=== PATIENT | female | born 1985 | race Caucasian/White ===

== ENCOUNTER → 2017-08-07 12:07 | Outpatient (CLI) | payer OTHER, MEDICAID, SELFPAY ==
[2017-08-07 16:08] LABS: hCG Titer Quant., Serum < 1 mIU/mL (<9 non-preg)
[2017-08-11 10:18] LABS: HPV Reflexed? NOT INDICATED
== END ==
PROVIDERS: Visit Provider Obstetrics & Gynecology
DX: Z12.4 Encounter for screening for malignant neoplasm of cervix (principal); N92.6 Irregular menstruation, unspecified
CPT/HCPCS: 36415; 84702; 88175; G0145

== ENCOUNTER → 2018-07-15 15:17 | Outpatient (CLI) | payer OTHER, MEDICAID, SELFPAY ==
[2016-01-27 07:20] VITALS: BMI 28.9
[2018-07-15 17:24] LABS: Chlamydia Trachomatis by PCR Negative (Negative); Neisserai gonorrhoeae by PCR Negative (Negative); Probe Check PASS; Sample Adequacy Control PASS; Specimen Processing Control PASS
[2018-07-18 08:53] LABS: HPV Reflexed? NOT INDICATED
== END ==
PROVIDERS: Visit Provider Obstetrics & Gynecology
DX: Z12.4 Encounter for screening for malignant neoplasm of cervix (principal); Z11.3 Encounter for screening for infections with a predominantly sexual mode of transmission
CPT/HCPCS: 87491; 87591; 88175; G0145

== ENCOUNTER → 2018-12-16 10:18 | Outpatient (CLI) | payer OTHER, MEDICAID, SELFPAY ==
[2016-01-27 07:20] VITALS: BMI 28.9
== END ==
PROVIDERS: Visit Provider Obstetrics & Gynecology
DX: Z36.9 Encounter for antenatal screening, unspecified (principal)
CPT/HCPCS: 36415; 83036

== ENCOUNTER → 2019-01-29 09:56 | Outpatient (CLI) | payer OTHER, MEDICAID, SELFPAY ==
[2016-01-27 07:20] VITALS: BMI 28.9
== END ==
PROVIDERS: Visit Provider Obstetrics & Gynecology
DX: Z36.85 Encounter for antenatal screening for Streptococcus B (principal)
CPT/HCPCS: 87081

== ENCOUNTER 2019-02-20 01:08 | Inpatient (IN) | payer OTHER, MEDICAID, SELFPAY ==
[2016-01-27 07:20] VITALS: BMI 28.9
[2019-02-20] MEDS: Oxytocin 10 UNITS/ML Vial IM (01:16)
--- NOTE | 2019-02-20 01:24 | PCM.HP.BLA ---
History and Physical Date of Admission: 02/20/19 ACOG ANTEPARTUM RECORD - HISTORY AND PHYSICAL (02/20/2019) Name: SUGEY ORTIZ History of This : This is a 33-year-old 8 para 5 AB 2 who presents in active labor. Upon arrival to the hospital patient was noted to have ruptured membranes and she was immediately brought from the emergency room to the labor and delivery suite. care remarkable for a prior precipitous delivery. OB Physician: [facility] '[facility] Phys[facility]: [facility] ...................................................................... : 1985 Age: 33 Address: [address] [place] [address] Phone: (h) [phone] Insurance Carrier: JOSÉ MIGUEL [id number] Emergency Contact: KIRK ORTIZ [phone] ...................................................................... Final MARILU: 02/26/19 By Ultrasound: PARITY: (G-Total Pregnancies P-Fullterm,Premature,Induced AB,Spont AB, Ectopics, Multiple,Living) MARILU CONFIRMATION: By LMP: 05/13/18 Initial Exam: 02/26/19 By First Ultrasound Exam: 02/26/19 Final MARILU: 02/26/19 BLOOD TYPE: TNP AFP: 1 HR P GBS: Original Ordering Provider: Nancy Benekos Comments: RECTAL/VAGINAL MAGALY Culture Group B Beta Streptococcus is not isolated. Rublla titer (>10 immune)--Aug 27 2011: 19 Hepatatis B javier AG-- Jul 08 2015: Negative Jul 31 2019: Negative CULTURES:-- OB PROBLEM LIST: Nurse delivered first baby due to rapid second stage. Baby #2 had Craniosynostosis. DOES NOT SWALLOW PILLS Hx of vulvar varicosities Lost her Glucola at lab Hgb A1C wnl. MSAFP and CF testing declined Rh Negative Rhogam at 28 wks. RUBELLA NONIMMUNE MMR Seborrheic Dermatitis Occas. use Cortisone Cream TSH suppressed. Free T3 and frree T4 -- WNL ALLERGIES: NKDA MEDICATIONS: azithromycin 200 mg/5 mL oral suspension 500 mg first dose, then 250 mg po daily until gone ferrous sulfate 325 mg (65 mg iron) tablet 1 po daily Flonase Allergy Relief 50 mcg/actuation nasal spray,suspension daily 28 mg iron-800 mcg tablet One pill by mouth once a day Proventil HFA 90 mcg/actuation aerosol inhaler 2 puffs q 4 hrs as needed Qvar 40 mcg/actuation Metered Aerosol oral inhaler 2 puffs BID Singulair 10 mg tablet One tablet by mouth daily Vitamin D3 1,000 unit capsule daily SOCIAL HISTORY: Smoking - Never Alcohol Use - None Diet - moderate, balanced diet Lifestyle - low stress lifestyle and Exercise - minimal 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[employer]) Illicit Drug Use - denies use of street drugs Sexual Activity - Residence - owns a home and lives with Place of - [place] Hours Worked - 30 Spouse-Sig Other Name - Art Ortiz Spouse-Sig Other Occupation - [employer] Spouse-Sig Other Phone No - [phone] Children Name(s) - Marco Antonio ([place]), Atif ([place]), Tiara (EL[place]), Jeancarlos (Jainism), Sabina (ELB) PRIOR DELIVERY HISTORY DEL DATE GEST LAB WT LB WT OZ TYPE ANES LABOR TX 07 Aug 12 39 16 6 15 Vag None No 08 Feb 10 39 3 6 9 Vag None No 11 Jan 17 38 2 6 6 Vagin None No 16 Mar 15 7 0 0 0 Sab Epidural No 23 Jan 19 39 -1 7 15 Vag None No 24 Nov 11 7 0 0 0 Vag None No 25 Feb 12 37 12 6 7 Vag None No ANTEPARTUM FLOW CHART VISIT GE RTC FU F F WA U U DATE WK MD WKS HT PN HR M SS BP ED WT WA GL D EF ST __ ____ ___ __ __ ___ __ __ __ ___ __ __ __ ___ __ 15 Feb ELB 1 34 V + + 122/84 0 158 tr - ft 03 Feb 37 ELB 1 34 V + + 124/66 sl 157 - - 26 Jan 36 ELB 1 34 V + + 126/72 0 157 - - 1 TH -3 05 Jan 33 ELB 2 33 - + + 124/72 0 155 tr - Jan 01 ELB 2 28 - + + 124/68 sl 155 tr - 02 Dec 31 ELB 2 28 - + + 100/72 0 156 - + 02 Nov 25 ELB 4 24 - + + 122/62 0 155 - - 05 Oct 22 ELB 4 - - U+ + 102/70 0 152 - - Aug 16 ELB 4 - - + O 130/74 0 150 tr - 28 Jul 14 JMW 4 U+ 116/68 0 149 tr - ANTEPARTUM NOTE(S): Feb 17 2019: see note Feb 05 2019: Jan 29 2019: LARC and GBS today Jan 08 2019: Dec 16 2019: HgbA1C today Dec 05 2018: feeling well. Glucola and rhogam given. Nov 04 2018: glucola given Oct 08 2018: feeling well. Aug 26 2018: doing well Jul 31 2018: Sono Today,Periodic nausea/fatigue,NOB Today COMPREHENSIVE ANTEPARTUM NOTE(S): Feb 17 2019: Sugey is here for visit. She is concerned about prior rapid delivery. Wants to discuss options. Not really sure if she wants induction. Reviewed FM, SROM, and labor. LMT Feb 17 2019: SWAPNA 22.3cm EFW 2884g gms EFW 36% pct EFW 6lb 6oz lbs AGA on sono last visit. Hoping no labor for now. Wants cervix check. Considering induction but not until at least 40 wks. hoping to be off 4 wk for her maternity leave. Then to [facility] break the week of diana. EB Feb 05 2019: Wearing bilateral compression stockings. Good FM. She is asking about GBS results-- advised was negative. She did get pre-registered. Getting uncomfortable with advancing ; she has been mukund, doing laundry and a little more tired today from added work at home. [facility] Feb 05 2019: Sono for SWAPNA and EGA. Size less than dates. Hx of smalller babies. RTO in 1 wk for PNV after sono today. EB Feb 02 2019: GBS negative. EB Feb 02 2019: H taken to OB. tkg Jan 29 2019: Continues compression stockings for lower legs, particularly R. Minimal edema. Good FM. GBS, LARC done today. Sent to [facility] to pre-register after appt this morning. Voicing no concerns today. [facility] Jan 08 2019: Reporting legs getting tired and achy by the end of the day, particularly R anterior lower leg area where varicosities are more prominent. She does wear compression stockings sometimes, not every day. Also reporting intermittent lower abd pressure more so when she is up and active. No ctxs's. Good FM. [facility] Jan 08 2019: Feeling well overall, contnuing to struggle with heartburn, Tums work sporadically, she is unable to swallow pills; ; reports active FM; denies nausea, UCs, VB, LOF; frequent interrupted sleep; superficial varcosities L lateral ankle, she does wear support hose most days; discussed trying Mylanta, what to watch for and report if worsening varicosities, warning signs, s/s PTL; RTO 3 week(s)for PNV GBS swab at next visit Jan 08 2019: Suggested Prilosec OTC granules for suspension for inc n/v at this point in reviewed other measures to help with nausea, heartburn. RTO in 3 wk for PNV. GBS next visit. EB Dec 16 2019: Not taking iron Does not swallow pills. Rec iron rich foods. HgbA1C today to check diabetes in Glucola lost in transit. RTO in 2-3 wk for PNV. EB Nov 04 2019: Sugey reporting FM. Glucola bottle and instructions given to be done next visit. Expressing concern with feeling hungry, but just ate: does not feel this every day; has noticed this feeling with meds sometimes. On Qvar, Flonase, Singulair for Asthma. Otherwise feeling well. kbm Oct 08 2019: Inc acne and skin irritation over her face, cheeks. Wondering if WNL. Asking if this is Fifth's disease. Children potentially exposed to this. Offered Parvovirus B 19 IgM, IgG and reviewed usual sx that adults would have. Has not had labs done. Lab order already sent in for her via triage to have this testing done. Daughter did NOT have the slapped cheek appearance but they think just had a sun reaction, but not on face.... Advised that usual adult sx is not a rash/ slapped cheek appearance (which she doesn't have) but is normally joint aches and flu like sx. Asking what to try. EXAM: likely rosacea. Advised: try calming lotions and creams/ products for rosacea. Offered / declines RX for topical abx for now. Farshad WNL. Girl. AGA Doing well. EB Aug 26 2019: Reviewed l labs. TSH low and T4, T3 still pending. Cold sx and now with sinus infection x more than 7 d. Yellow thick dischg. Asthma and having to use more meds. Will send in liquid abx as she does not swallow pills. EB Aug 04 2018: A NEG. RUBELLA NONIMMUNE Hgb 12.9 g/dl. EB Jul 31 2018: Sugey is here for her NOB visit at 10 w 0 d, she is a A2 with an MARILU of 02/26/2019. She and her have 5 children at home, all delivered vaginally. Past history updated. Her last labor was induced as she usually has rapid labors and she was GBS+. Delivery at [facility] is planned without an epidural and she will breastfeed. She has a hx of Asthma, and uses several medications for same, including a rescue inhaler. Sugey is a non-smoker, and she denies use of drugs or ETOH. She takes an OTC gummy vitamin, and tolerates this well. States that she cannot swallow pills. Genetic Screening form competed. MSAFP and CF testing declined, consent signed as such. Office practice patterns reviewed. labs drawn prior to NOB visit. Emergencies/danger signs to report, round ligament pain, reporting s/s of a UTI, and common OTC medications approved/not approved for use during discussed. Sugey states that she notes some nausea, no emesis. Reviewed measures that may help minimize nausea, including small frequent meals with protein included throughout the day, and adequate water hydration of at least one gallon per 24 hours. She walks for exercise several times a week. Kegel exercises reviewed. Lifting restrictions discussed. Dietary and water needs reinforced, including caloric needs, recommended weight gain, limiting empty calories, and limiting caffeine to one cup a day. Printed guide for food safety provided with review. Sugey states that she has no questions following NOB visit, and has no questions following same. AW New Jul 15 2018: Sugey is here for missed menses. Relates very fatigued, feels more so than other times she thinks. This is her her 8 th . History of 5 full term births and 2 SAB's prior. Asking if anything she can do for the fatigue? Advised take PNV more regularly and rest as able. Really not much to do for this. Has a lot of responsibilities at home with job and children so this is likely pretty normal. Takes PNV intermittently as feels this makes her more nausea. Not interested in things to try unless they are natural. Advised she could try B6 bid, seabands. Will ck panel at her next visit to make sure she is not anemic or has a thyroid disorder. Feels her inhaler increases her nausea but needs to take this. Agree. Educational materials are provided are reviewed. Encouarged increased fluids as tolerated, 300 extra calories per day, 30 minutes of exercise 5x/wk. Pap and cultures will be done today. LMT Jul 15 2018: Cervical cultures NEG EB REVIEW OF SYSTEMS: GENERAL - Denies fever, or chills SKIN - Denies rash, new skin lesions, or change in moles EYES - Denies blurred vision, or change in visual acuity EARS - Denies ear pain, or difficulty hearing NOSE - Denies nasal congestion, discharge, or bleeding MOUTH - Denies sore throat, or difficulty swallowing NECK - Denies pain or swelling RESPIRATORY - Denies shortness of breath, cough, wheezing CARDIOVASCULAR - Denies palpitations, chest pain, orthopnea, PND, peripheral edema, syncope or claudication GASTROINTESTINAL - Denies nausea, vomiting, diarrhea, constipation, Denies abdominal pain, melena and or bright red blood GENITOURINARY - Denies dysuria, frequency of urination, urgency, or hesitancy MUSCULOSKELETAL - Denies joint or muscle pain, or back pain NEUROLOGICAL - Denies localized numbness, weakness, or tingling PSYCHIATRIC - Denies depression, anxiety, substance abuse or suicide attempts ENDOCRINE - Denies heat or cold intolerance, weight loss or gain, increasing thirst HEMATO-IMMUNOLOGIC - Denies easy bruising, bleeding, oral ulcerations or recurrent infections GENETICS SCREENING: Age 35+ years: No Thalassemia: No Neural Tube Defect: No Down Syndrome: No JEWELL-SACHS: No Sickle Cell Disease: No Hemophilia: No Musc. Dystrophy: No Cystic Fibrosis: No-declines screening Jeremias Chorea: No Mental Retardation: No Fragile X: No Other genetic: son-Craniosynotosis Other defects: son-Craniosynotosis SABs/still births: No Drugs since LMP: Yes, Qvar, Sigulair INFECTION HISTORY: High risk AIDS: No High risk Hepatitis: No Exposed to TB: No Exposed to Herpes: No Rash/viral illness since LMP: No History of STD: No MENSTRUAL HISTORY: *Menses Amount/Duration: 5-6 DAYSMenses Regularity: 4-7 weeksFrequency: variableMenarche (Age Onset): 13* PAST SUMMARY: PARITY: 1. Total Pregnancies............ 8 2. Full Term Pregnancies........ 5 3. Premature.................... 0 4. Abortions - Induced.......... 0 5. Abortions - Spontaneous...... 2 6. Ectopics..................... 0 7. Multiple Births.............. 0 8. Living Children.............. 5 PAST #1: Date of :.................. 08/10/08 Gestation Weeks:................ 39 Length of labor(hours):......... 16 Sex:............................ M Weight-lbs:............... 6 Weight-oz:................ 15 Type of Delivery:............... Vag Type of Anesthesia:............. None Place of Delivery:.............. [place] Treatment of Labor?:.... No Comment: NURSE DELIVERED BABY PAST #2: Date of :.................. 02/10/10 Gestation Weeks:................ 39 Length of labor(hours):......... 3 Sex:............................ M Weight-lbs:............... 6 Weight-oz:................ 9 Type of Delivery:............... Vag Type of Anesthesia:............. None Place of Delivery:.............. [place] Treatment of Labor?:.... No Comment: PAST #3: Date of :.................. 03/29/11 Gestation Weeks:................ 7 Length of labor(hours):......... 0 Sex:............................ UNKNOWN Weight-lbs:............... 0 Weight-oz:................ 0 Type of Delivery:............... Vag Type of Anesthesia:............. None Place of Delivery:.............. HOME Treatment of Labor?:.... No Comment: NO D & C NEEDED PAST #4: Date of :.................. 02/28/12 Gestation Weeks:................ 37 Length of labor(hours):......... 12 Sex:............................ F Weight-lbs:............... 6 Weight-oz:................ 7 Type of Delivery:............... Vag Type of Anesthesia:............. None Place of Delivery:.............. [place] Treatment of Labor?:.... No Comment: PAST #5: Date of :.................. 01/14/14 Gestation Weeks:................ 38 Length of labor(hours):......... 2 Sex:............................ M Weight-lbs:............... 6 Weight-oz:................ 6 Type of Delivery:............... Vaginal Type of Anesthesia:............. None Place of Delivery:.............. [place] Treatment of Labor?:.... No Comment: GBS POSITIVE PAST #6: Date of :.................. 03/21/15 Gestation Weeks:................ 7 Length of labor(hours):......... 0 Sex:............................ Weight-lbs:............... 0 Weight-oz:................ 0 Type of Delivery:............... Sab Type of Anesthesia:............. Epidural Place of Delivery:.............. [place] Treatment of Labor?:.... No Comment: PAST #7: Date of :.................. 01/27/16 Gestation Weeks:................ 39 Length of labor(hours):......... -1 Sex:............................ F Weight-lbs:............... 7 Weight-oz:................ 15 Type of Delivery:............... Vag Type of Anesthesia:............. None Place of Delivery:.............. [place] Treatment of Labor?:.... No Comment: GBS+, IOL PHYSICAL EXAMINATION General Appearence: 33 yo female in no acute distress Vital Signs: AF, VSS Heart: RRR without rubs or gallops Lungs: CTA x 2 Breasts: deferred Abdomen: gravid Pelvis: Cervix: Complete with gross rupture of membranes Presentation: cephalic Station: +2 Fetus: Size: AGA Movement: present Heart: present Labs for : SUGEY ORTIZ since 06/01/2018 ORDER DATEIN DESCRIPTION VALUE UNITS RANGE A+ COMMENT CULTURE, GROUP B STREPTOCOCCUS 01/29/19 NOTE Original Ordering Provider: Nancy Regan Comments: RECTAL/VAGINAL MAGALY Culture Group B Beta Streptococcus is not isolated. Reviewed by NANCY HEMOGLOBIN A1C 12/16/18 NOTE Original Ordering Provider: Nancy Regan HGB A1C 5.0 % 4.2-6.3 Reviewed by NANCY SPECIMEN STATUS REPORT 12/05/18 SPECIMEN STATUS REPORT NOSR No specimen received. TEST: [id number] Gest. Diabetes 1-Hr Screen SPECIMEN REQUIRED LEDEZMA TOP SPECIMEN RECEIVED LITH HEP PLASMA CONTACTED RUPA LANDRUM RN AT YOUR FACILITY ON 12/08/18 GEST. DIABETES 1-HR SCREEN 12/05/18 GESTATIONAL DIABETES SCREEN NOSR mg/dL No specimen received. SPECIMEN REQUIRED LEDEZMA TOP SPECIMEN RECEIVED LITH HEP PLASMA CONTACTED RUPA LANDRUM RN AT YOUR FACILITY ON 12/08/18 According to ADA, a glucose threshold of >139 mg/dL after 50-gram load identifies approximately 80% of women with gestational diabetes mellitus, while the sensitivity is further increased to approximately 90% by a threshold of >129 mg/dL. CBC WITH DIFFERENTIAL/PLATELET 12/05/18 WBC 9.8 x10E3/uL 3.4-10.8 RBC 3.50 x10E6/uL 3.77-5.28 L HEMOGLOBIN 10.9 g/dL 11.1-15.9 L HEMATOCRIT 32.5 % 34.0-46.6 L MCV 93 fL 79-97 MCH 31.1 pg 26.6-33.0 MCHC 33.5 g/dL 31.5-35.7 RDW 12.5 % 12.3-15.4 PLATELETS 291 x10E3/uL 150-450 NEUTROPHILS 72 % Not Estab. LYMPHS 19 % Not Estab. MONOCYTES 7 % Not Estab. EOS 2 % Not Estab. BASOS 0 % Not Estab. IMMATURE CELLS NEUTROPHILS (ABSOLUTE) 7.1 x10E3/uL 1.4-7.0 H LYMPHS (ABSOLUTE) 1.9 x10E3/uL 0.7-3.1 MONOCYTES(ABSOLUTE) 0.7 x10E3/uL 0.1-0.9 EOS (ABSOLUTE) 0.2 x10E3/uL 0.0-0.4 BASO (ABSOLUTE) 0.0 x10E3/uL 0.0-0.2 IMMATURE GRANULOCYTES 0 % Not Estab. IMMATURE GRANS (ABS) 0.0 x10E3/uL 0.0-0.1 NRBC HEMATOLOGY COMMENTS: ANTIBODY SCREEN 12/05/18 ANTIBODY SCREEN Negative Negative Reviewed by NANCY TAYLOR URINE TUBE (LEDEZMA) 07/31/18 NTI URINE TUBE (LEDEZMA) Test not indicated . A urine culture transport was received with no test indicated. If testing is required on this specimen, please contact the [facility] Client Inquiry/Technical Services Department to obtain a Request for Written Authorization Form. HCV ANTIBODY 07/31/18 HEP C VIRUS AB <0.1 s/co ratio 0.0-0.9 Negative: < 0.8 Indeterminate: 0.8 - 0.9 Positive: > 0.9 . The CDC recommends that a positive HCV antibody result be followed up with a HCV Nucleic Acid Amplification test ([id number]). CBC/D/PLT+RPR+UA+RH+ABO+RUB... 07/31/18 TSH 0.423 uIU/mL 0.450-4.500 L HBSAG SCREEN Negative Negative RPR Non Reactive Non Reactive RUBELLA ANTIBODIES, IGG 0.96 index Immune >0.99 L A second sample should be collected and tested no less than 2-4 weeks. Non-immune <0.90 Equivocal 0.90 - 0.99 Immune >0.99 ABO GROUPING A RH FACTOR Negative Please note: Prior records for this patient's ABO / Rh type are not available for additional verification. ANTIBODY SCREEN Negative Negative HIV SCREEN 4TH GENERATION WRFX Non Reactive Non Reactive WBC 13.9 x10E3/uL 3.4-10.8 H RBC 4.17 x10E6/uL 3.77-5.28 HEMOGLOBIN 12.9 g/dL 11.1-15.9 HEMATOCRIT 38.0 % 34.0-46.6 MCV 91 fL 79-97 MCH 30.9 pg 26.6-33.0 MCHC 33.9 g/dL 31.5-35.7 RDW 13.0 % 12.3-15.4 PLATELETS 353 x10E3/uL 150-379 NEUTROPHILS 73 % Not Estab. LYMPHS 19 % Not Estab. MONOCYTES 7 % Not Estab. EOS 1 % Not Estab. BASOS 0 % Not Estab. IMMATURE CELLS NEUTROPHILS (ABSOLUTE) 10.2 x10E3/uL 1.4-7.0 H LYMPHS (ABSOLUTE) 2.6 x10E3/uL 0.7-3.1 MONOCYTES(ABSOLUTE) 0.9 x10E3/uL 0.1-0.9 EOS (ABSOLUTE) 0.1 x10E3/uL 0.0-0.4 BASO (ABSOLUTE) 0.0 x10E3/uL 0.0-0.2 IMMATURE GRANULOCYTES 0 % Not Estab. IMMATURE GRANS (ABS) 0.0 x10E3/uL 0.0-0.1 NRBC HEMATOLOGY COMMENTS: SPECIFIC GRAVITY >=1.030 1.005-1.030 A PH 6.5 5.0-7.5 URINE-COLOR Yellow Yellow APPEARANCE Clear Clear WBC ESTERASE Negative Negative PROTEIN Trace Negative/Trace GLUCOSE Negative Negative KETONES Trace Negative A OCCULT BLOOD Negative Negative BILIRUBIN Negative Negative UROBILINOGEN,SEMI-QN 0.2 mg/dL 0.2-1.0 NITRITE, URINE Negative Negative MICROSCOPIC EXAMINATION Microscopic not indicated and not performed. [id number] 7+ALC-UNBUND 07/31/18 AMPHETAMINES, URINE Negative ng/mL Mbfeyj=0970 Amphetamine test includes Amphetamine and Methamphetamine. BARBITURATE Negative ng/mL Pyhbfy=753 BENZODIAZEPINES Negative ng/mL Eiqlpr=656 CANNABINOID Negative ng/mL Cutoff=50 COCAINE (METAB.) Negative ng/mL Amdvnq=810 OPIATES See Final Results ng/mL Moyclw=853 Opiate test includes Codeine and Morphine only. OPIATES Negative Avudej=363 Opiate test includes Codeine and Morphine only. PHENCYCLIDINE Negative ng/mL Cutoff=25 ETHANOL, URINE Negative % Cutoff=0.020 Reviewed by NANCY PAP I-G W/RFX HRHPV 07/15/18 NOTE Original Ordering Provider: Nancy Regan DIAGN . NEGATIVE FOR INTRAEPITHELIAL LESION OR MALIGNANCY. ADEQ . Satisfactory for evaluation. Endocervical and/or squamous metaplastic cells (endocervical component) are present. PERFORM . Rayna Wiggins, [place] (ASCP) TEST METHOD . This liquid based ThinPrep(R) pap test was screened with the use of an image guided system. COMM . . PAPSMR . The Pap smear is a screening test designed to aid in the detection of premalignant and malignant conditions of the uterine cervix. It is not a diagnostic procedure and should not be used as the sole means of detecting cervical cancer. Both false-positive and false-negative reports do occur. HPV RFLX . The HPV DNA reflex criteria were not met with this specimen result therefore, no HPV testing was performed. Performed at: [address] [id number] Lithograph Operator: Melissa Odom MD, Phone: [phone] Reviewed by NANCY STEEN/ÁLVARO [facility] BY PCR 07/15/18 NOTE Original Ordering Provider: Nancy Regan [facility] PCR Negative Negative NG BY PCR Negative Negative Reviewed by NANCY PROVIDER SIGNATURE ( REQUIRED) Impression /Plan: 39+ week intrauterine and advanced labor. Precipitous delivery ensued within 1 to 2 minutes upon arrival on labor and delivery.
[2019-02-20 01:30] VITALS: BMI 27.6
--- NOTE | 2019-02-20 01:31 | DCINST_ITS ---
Discharge Diet: No Restrictions Discharge Activity: May Shower, May Take a Tub Bath May resume sexual activity in: 4-6 weeks Additional Activity Instructions:: Nothing in the vagina for 4-6 weeks. You may return to work/school in 6 weeks. Call your doctor if you observe: Fever of 101 or Higher, Inability to urinate, Inability to have a bowel movement, Using more than one pad per hour Additional Instructions: If you experience any of the following, contact your healthcare provider. * Bleeding that soaks a pad every hour for 2 hours * Unrelieved incision or abdominal pain * Swelling, redness, discharge or bleeding from your incision or episiotomy site * Your incision begins to separate * Problems urinating (including inability to urinate or burning while urinating). * Visual changes * Severe headache * Flu-like symptoms * Pain or redness in one of both of your breasts * Pain, warmth, tenderness or swelling in your legs, especially the calf area * Frequent nausea and vomiting * Symptoms of depression or anxiety If you experience any of the following, call 911 or go to the nearest Emergency Room. * Chest pain * Problems breathing * Seizure activity * Partial or complete paralysis of a body part, slurred speech, weakness or drooping of the face, or a sudden inability to walk or hold your balance Allergies/Adverse Reactions: Allergies No Known Allergies Allergy (Verified 02/20/19 01:30) Medications to take at Discharge Beclomethasone Diprop Inhaler [Qvar 80 Mcg Inhaler] 2 puff INHALATION BID 01/27/16 Fluticasone 0.05% [Flonase Nasal [place]] 2 spray NASAL DAILY 01/27/16 Montelukast Sodium [Singulair] 10 mg PO 01/27/16 Vit No.130/Iron/Folic [ Vitamins] 1 each PO 01/27/16 Please Follow Up With: Nancy Regan MD - [phone] When: Call to make an appointment with your doctor in 6 weeks. Primary Care Physician: Care Physician,No Primary [Primary Care Provider] - Test Results: Test results from this visit will be discussed in further detail at your follow-up appointment, if applicable.
--- NOTE | 2019-02-20 01:32 | PCM.OPRPT ---
Vaginal Delivery Maternal Presentation: Active Labor Patient presents to labor and delivery with advanced cervical dilation and rupture of membranes. Amniotic Membrane Rupture Type: Spontaneous - Rupture of membranes occurred in the car on the way to the hospital Amniotic Fluid Description: Clear Final MARILU: 02/26/19 Final MARILU Source: US <20 weeks Gestational age: 39 Weeks and 1 Days Date of Procedure: 02/20/19 Pre-Operative Diagnosis: IUP Post-Operative Diagnosis: IUP Surgery/ Procedure Performed: Spontaneous Vaginal Delivery, - - Precipitous delivery Type of Anesthesia: None Description of Procedure: Precipitous spontaneous vaginal delivery of a viable female infant with Apgars of 8/9 from an occiput anterior presentation with clear amniotic fluid and normal three-vessel placenta. Cord around the neck x2 tight. No episiotomy or lacerations. Sponges okay. Delivery physician: Jf Price MD. Presentation: Vertex Placental Delivery Description: Spontaneous Placenta Disposition: [facility] Cord Vessel Description: 3 Vessels Cord Entanglement: Around neck x 2, tight A gender: Female (1 minute): 8 (5 minute): 9 Episiotomy Description: None Laceration: None Medications given after delivery: - - IM Pitocin Complications: None
[2019-02-20 02:46] LABS: Hematocrit 37.1 % (37-47); Hemoglobin 12.1 g/dL (12.0-15.0); Mean Corp Hgb Conc 32.6 g/dL (32-36); Mean Corpuscular Hgb 30.1 pg (27.0-32.0); Mean Corpuscular Volume 92.3 fL (81-99); Mean Platelet Vol. 11.1 fl (6.2-12.0); Platelet Count 263 K/mm3 (150-450); RBC Distribution Width CV 13.1 % (11.6-14.6); Red Blood Count 4.02 M/mm3 (4.2-5.4); White Blood Count 10.1 K/mm3 (4.4-11.0)
[2019-02-20] MEDS: Ibuprofen 100 MG/5 ML UDC 600 MG PO ×3 (03:04→18:08)
[2019-02-20 03:10] VITALS: BP 120/69; PULSE 81; RESP 18; TEMP 37.2; O2SAT 97
[2019-02-20 07:49] VITALS: BP 109/63; PULSE 84; RESP 16; TEMP 37; O2SAT 98
[2019-02-20] MEDS: Acetaminophen 650 MG/20 ML UDC 1000 MG PO ×2 (08:14→16:45)
--- NOTE | 2019-02-20 08:50 | PCM.PN.OB ---
Subjective: Day of delivery Doing well. Minimal pain. Plans to nurse. Relates events of night: precipitous labor and delivery. Baby is Rh positive. Will need RhoGAM - Physical Exam General: Alert, Oriented x3, Cooperative, No apparent distress HEENT: Atraumatic, EOMI Psych/Mental Status: Normal Affect Vital Signs Temp Pulse Resp BP Pulse Ox 98.6 F 84 16 109/63 98 02/20/19 07:49 02/20/19 07:49 02/20/19 07:49 02/20/19 07:49 02/20/19 07:49 Oxygen Delivery Method Room Air Weight: 70.307 kg Body Mass Index (BMI) 27.6 Intake and Output for Last 24 Hours 02/18/19 02/19/19 02/20/19 23:59 23:59 23:59 Intake Total 500 / 500 Output Total 250 / 250 Balance 250 / 250 Laboratory Tests Past 24 Hrs 02/20/19 02/20/19 01:45 01:45 WBC 10.1 RBC 4.02 L Hgb 12.1 Hct 37.1 MCV 92.3 MCH 30.1 MCHC 32.6 RDW Std Deviation 45.0 H RDW Coeff of Amber 13.1 Plt Count 263 MPV 11.1 Blood Type A NEGATIVE Antibody Screen NEGATIVE Screen NEGATIVE Baby's Blood Type O POSITIVE Baby's VEENA NEGATIVE Medical Necessity - Tobacco Use Smoking Status: Never smoker Assessment/Plan PPD#0 Precipitous delivery. Stable . Plans to go home tomorrow by noon. GBS neg. no lacerations at delivery. Continue routine pp care.
[2019-02-20] MEDS: Fluticasone 0.05% 1 SPRAY NASAL.SRY 2 SPRAY NASAL (10:00)
[2019-02-20 11:23] VITALS: BP 112/70; PULSE 69; RESP 16; TEMP 36.5; O2SAT 97
[2019-02-20 16:05] VITALS: BP 139/92; PULSE 71; RESP 16; TEMP 37.1; O2SAT 99
[2019-02-20] MEDS: Montelukast 10 MG Tablet PO (16:48)
[2019-02-20 18:00] VITALS: BP 107/68; PULSE 81
[2019-02-20 20:23] VITALS: BP 129/81; PULSE 63; RESP 20; TEMP 37.1; O2SAT 97
[2019-02-21] MEDS: Ibuprofen 100 MG/5 ML UDC 600 MG PO ×2 (00:23→06:05)
[2019-02-21 01:10] VITALS: BP 107/76; PULSE 85; RESP 18; TEMP 36.6
--- NOTE | 2019-02-21 06:20 | PCM.PN.OB ---
Subjective: Feeling well, tolerating diet, passing flatus, pain well controlled by Ibuprofen, infant well; desires DC home today Objective: AVSS Breasts filling, nipples atraumatic Fundus firm, midline, u/2, lochia small Rh negative Rubella non immune - Physical Exam General: Alert, Oriented x3, Cooperative, No apparent distress HEENT: PERRLA, EOMI Oral: Moist Mucosa Neck: Supple Lungs: Clear to auscultation, Normal air movement Cardiovascular: Regular rate, Regular Rhythm Abdomen: Bowel Sounds Present, Soft, Non Tender, Non-Distended, Passing Flatus Extremities: No edema Musculoskeletal: No Tenderness to Palpation of Joints or Extremities Neurological: Cranial nerves II-XII grossly intact, Deep Tendon Reflexes 2+/4 and Symmetrical Psych/Mental Status: Normal Affect, Appropriate, Alert and oriented to time, place, person, mood and affect Vital Signs Temp Pulse Resp BP Pulse Ox 97.8 F 85 18 107/76 97 02/21/19 01:10 02/21/19 01:10 02/21/19 01:10 02/21/19 01:10 02/20/19 20:23 Oxygen Delivery Method Room Air Weight: 155 lb Body Mass Index (BMI) 27.6 Intake and Output for Last 24 Hours 02/19/19 02/20/19 02/21/19 23:59 23:59 23:59 Intake Total 500 / 500 Output Total 250 / 250 Balance 250 / 250 Medical Necessity - Tobacco Use Smoking Status: Never smoker Assessment/Plan Assessment: 33yo G8 now [id number] Spike 02/26/19 by 10w0d US Precipitous at 39w1d Rh negative Rubella non immune Normal involution, normal PP course Plan: Discharge instructions discussed Rhogam given per nursing staff MMR given per nursing staff DC home today
[2019-02-21] MEDS: Fluticasone 0.05% 1 SPRAY NASAL.SRY 2 SPRAY NASAL (06:29)
[2019-02-21 09:33] VITALS: BP 116/78; PULSE 84; RESP 16; TEMP 36.9
== END 2019-02-21 11:15 | disposition home or self-care (01) | DRG 807 ==
PROVIDERS: Admitting Provider Obstetrics & Gynecology; Referring Provider Obstetrics & Gynecology; Visit Provider Obstetrics & Gynecology
DX: O42.02 Full-term premature rupture of membranes, onset of labor within 24 hours of rupture (principal); Z37.0 Single live birth; O62.3 Precipitate labor; O69.1XX0 Labor and delivery complicated by cord around neck, with compression, not applicable or unspecified; Z3A.39 39 weeks gestation of pregnancy
CPT/HCPCS: 85027; 85461; 86850; 86900; 86901; 90384; 99218; G0378; J2790

== ENCOUNTER → 2020-05-03 17:11 | Outpatient (CLI) | payer OTHER, MEDICAID, SELFPAY ==
[2020-05-03 17:55] LABS: Hematocrit 40.8 % (37-47); Hemoglobin 12.8 g/dL (12.0-15.0); Mean Corp Hgb Conc 31.4 g/dL (32-36); Mean Corpuscular Volume 95.8 fL (81-99); Mean Platelet Vol. 10.1 fl (6.2-12.0); Platelet Count 319 K/mm3 (150-450); RBC Distribution Width SD 42.3 fl (35.1-43.9); Red Blood Count 4.26 M/mm3 (4.2-5.4); White Blood Count 9.1 K/mm3 (4.4-11.0)
[2020-05-03 18:31] LABS: Anion Gap 5 (5-15); BUN 14 mg/dL (7-18); BUN/Creat Ratio 21.6 RATIO (10-20); Calcium,Total 9.1 mg/dL (8.5-10.1); Chloride 105 mmol/L (98-107); Creatinine, Serum 0.65 mg/dL (0.55-1.02); EST Glomerular Filtration Rate 112 mL/min (>60); Est Glom Filt Rate - Afr Amer 136 mL/min (>60); Glucose 87 mg/dL (74-106); Potassium 3.7 mmol/L (3.5-5.1); Prolactin 2.5 ng/mL; Sodium Level 137 mmol/L (136-145)
== END ==
PROVIDERS: Visit Provider Obstetrics & Gynecology
DX: R51.9 Headache, unspecified (principal)
CPT/HCPCS: 36415; 80048; 84146; 85027

== ENCOUNTER → 2020-12-07 16:46 | Outpatient (CLI) | payer OTHER, MEDICAID, SELFPAY ==
[2020-12-07 18:26] LABS: hCG Titer Quant., Serum 1 mIU/mL (1-3)
== END ==
PROVIDERS: Visit Provider Obstetrics & Gynecology
DX: R06.02 Shortness of breath (principal)
CPT/HCPCS: 36415; 84702

== ENCOUNTER → 2021-10-20 | Outpatient (CLI) | payer OTHER, MEDICAID, SELFPAY ==
[2021-10-26 13:35] LABS: HPV APTIMA, High Risk Negative (Negative)
== END | disposition home or self-care (01) ==
LOC: LABSPEC 16:24
PROVIDERS: Visit Provider Obstetrics & Gynecology
DX: Z12.4 Encounter for screening for malignant neoplasm of cervix (principal)
CPT/HCPCS: 87624; 88175; G0145